=== PATIENT | female | born 1965 | race Caucasian/White ===

== ENCOUNTER 2023-01-30 07:08 | Day surgery (SDC) | payer OTHER ==
[~2023-01-30] VITALS: Ht 157.5 cm; Wt 77.1 kg
[2023-01-30] MEDS ORDERED: MEPERIDINE 50 MG/ML VIAL ONE (08:34)
[2023-01-30] MEDS ORDERED: MIDAZOLAM HCL 5 MG/5 ML VIAL ONE (08:35)
[2023-01-30] MEDS ORDERED: BENZOCAINE 20% 0.5mL UD SPRAY MM ONE (10:44)
[2023-01-30] MEDS ORDERED: ONDANSETRON HCL 4 MG/2 ML VIAL ONE (10:47)
[2023-01-30 12:49] VITALS: BP_SYST 134
== END 2023-01-30 11:50 | disposition home or self-care (01) ==
LOC: SDS 07:08 → SMU 07:10 → SDS 11:50
PROVIDERS: ATTEND Internal Medicine
DX: K75.81 Nonalcoholic steatohepatitis (NASH) (principal); K29.50 Unspecified chronic gastritis without bleeding; I12.0 Hypertensive chronic kidney disease with stage 5 chronic kidney disease or end stage renal disease; E11.22 Type 2 diabetes mellitus with diabetic chronic kidney disease; N18.6 End stage renal disease; E78.5 Hyperlipidemia, unspecified; I25.10 Atherosclerotic heart disease of native coronary artery without angina pectoris; Z99.2 Dependence on renal dialysis; Z86.010 Personal history of colon polyps; Z86.73 Personal history of transient ischemic attack (TIA), and cerebral infarction without residual deficits; Z90.49 Acquired absence of other specified parts of digestive tract; Z90.89 Acquired absence of other organs; Z79.899 Other long term (current) drug therapy
CPT/HCPCS: 43239; 82962; 88305; 88312; 88313; 99152; G0378; J2250; J2405; J2175

== ENCOUNTER 2023-07-24 07:26 | Day surgery (SDC) | payer OTHER ==
[~2023-07-24] VITALS: Ht 157.5 cm; Wt 77.1 kg
[2023-07-24] MEDS ORDERED: fentaNYL CITRATE/PF 100 MCG/2 ML AMP ONE (08:05)
[2023-07-24] MEDS ORDERED: MIDAZOLAM HCL 5 MG/5 ML VIAL ONE (08:05)
[2023-07-24 08:30] VITALS: O2SAT 100
[2023-07-24 14:09] VITALS: BP_SYST 92; PULSE 75; RESP 14
== END 2023-07-24 13:20 | disposition home or self-care (01) ==
LOC: SDS 07:26 → SMU 07:27 → SDS 13:20
PROVIDERS: ATTEND Internal Medicine
DX: Z12.11 Encounter for screening for malignant neoplasm of colon (principal); D12.4 Benign neoplasm of descending colon; K57.30 Diverticulosis of large intestine without perforation or abscess without bleeding; K64.8 Other hemorrhoids; I12.0 Hypertensive chronic kidney disease with stage 5 chronic kidney disease or end stage renal disease; E11.22 Type 2 diabetes mellitus with diabetic chronic kidney disease; N18.6 End stage renal disease; I25.10 Atherosclerotic heart disease of native coronary artery without angina pectoris; E78.5 Hyperlipidemia, unspecified; Z99.2 Dependence on renal dialysis; Z86.010 Personal history of colon polyps; Z80.0 Family history of malignant neoplasm of digestive organs; Z86.73 Personal history of transient ischemic attack (TIA), and cerebral infarction without residual deficits; Z95.1 Presence of aortocoronary bypass graft; Z90.49 Acquired absence of other specified parts of digestive tract; Z90.89 Acquired absence of other organs; Z79.4 Long term (current) use of insulin; Z79.01 Long term (current) use of anticoagulants; Z79.899 Other long term (current) drug therapy
CPT/HCPCS: 45385; 82962; 88305; 99153; 99152; G0378; J2250; J3010